=== PATIENT | male | born 1945 | race Caucasian/White ===

== ENCOUNTER 2017-02-16 03:38 | Inpatient (IN) | payer OTHER ==
[~2017-02-16] VITALS: Ht 193 cm; Wt 163.3 kg
[2017-02-16] VITALS (7 sets, daily range): BP systolic 148–192; BP diastolic 63–74
[2017-02-16] MEDS ORDERED: ALLOPURINOL 10100 M1 PO (04:01)
[2017-02-16] MEDS ORDERED: ASPIR 8181 M1 PO (04:01)
[2017-02-16 04:02] LABS: HEMOGLOBIN 12.7 gm/dL (14.0-18.0); MCH 26.5 pg (26.0-34.0); MCHC 32.6 g/dL (28.0-37.0); MCV 81.2 fL (80.0-100.0); MPV 7.8 fl. (7.2-11.1); NUCLEATED RBCS 0 /100WBC; PLATELET COUNT* 249 thou/uL (150-400); RBC 4.81 mil/uL (4.50-6.00); RDW-CV 14.4 % (10.5-14.5); WBC 13.9 thou/uL (4.0-11.0)
[2017-02-16] MEDS ORDERED: CALCIUM CITRAT250 MG PO (04:02)
[2017-02-16] MEDS ORDERED: WELLBUTRIN 75 M75 M1 PO (04:02)
[2017-02-16] MEDS ORDERED: VITAMIN D1000 UNI1 PO (04:03)
[2017-02-16] MEDS ORDERED: IRON325 PO (04:04)
[2017-02-16] MEDS ORDERED: FOLIC ACID1 MG PO (04:04)
[2017-02-16] MEDS ORDERED: NEURONTIN 300300 M1 PO (04:04)
[2017-02-16] MEDS ORDERED: PRAVACHOL20 MG PO (04:05)
[2017-02-16] MEDS ORDERED: TRAZODONE HCL50 MG PO (04:05)
[2017-02-16] MEDS ORDERED: ZANTAC 150MG T150 MG PO (04:05)
[2017-02-16] MEDS ORDERED: FLOMAX0.4 MG PO (04:05)
[2017-02-16] MEDS ORDERED: NORVASC5 MG PO (04:06)
[2017-02-16] MEDS ORDERED: LOPRESSOR100 M1 PO (04:06)
[2017-02-16] MEDS ORDERED: CLARITIN10 MG PO (04:06)
[2017-02-16] MEDS ORDERED: LANTUS SUBQ (04:09)
[2017-02-16] MEDS ORDERED: MELATONIN3 MG PO (04:09)
[2017-02-16] MEDS ORDERED: NOVOLOG100 UNIT/1 SUBQ (04:10)
[2017-02-16] MEDS ORDERED: NORCO 5-325 TA1 EACH PO (04:10)
[2017-02-16] MEDS ORDERED: BIOFREEZE118 ML TOP (04:12)
[2017-02-16] MEDS ORDERED: TYLENOL325 MG PO (04:12)
[2017-02-16 04:14] LABS: CALCIUM 9.2 mg/dL (8.5-10.1); CREATININE 1.2 mg/dL (0.6-1.3); POTASSIUM 3.5 mmol/L (3.5-5.1)
[2017-02-16 04:25] LABS: ALBUMIN 2.7 g/dL (3.4-5.0); TOTAL BILIRUBIN 0.5 mg/dL (<0.1-1.0); TOTAL PROTEIN 7.1 g/dL (6.4-8.2)
[2017-02-16 05:09] LABS: INFLUENZA A ANTIGEN None Detected (None Detect); INFLUENZA B ANTIGEN None Detected (None Detect)
[2017-02-16 05:51] LABS: ABSOLUTE LYMPHOCYTES 1.5 thou/uL (0.8-5.3); ABSOLUTE MONOCYTES 1.3 thou/uL (0.0-1.2); ABSOLUTE NEUTROPHILS 11.1 thou/uL (1.6-8.1); ANISOCYTOSIS 1+; PLATELET ESTIMATE ADEQUATE; POIKILOCYTOSIS 1+
--- NOTE | 2017-02-16 06:30 | NUR ---
PATIENT'S SISTER THOMAS INFORMED THAT PATIENT WILL BE ADMITTED
--- NOTE | 2017-02-16 07:26 | NUR ---
PT PLACED IN INPATIENT BED IN ROOM #6.
[2017-02-16 08:49] LABS: URINE BILIRUBIN NEGATIVE (Negative); URINE BLOOD 2+ (Negative); URINE CLARITY CLEAR; URINE COLOR YELLOW; URINE GLUCOSE-RANDOM NEGATIVE (Negative); URINE KETONES TRACE (Negative); URINE LEUKOCYTES-REFLEX TRACE (Negative); URINE PROTEIN 3+ (Negative); URINE SPECIFIC GRAVITY >= 1.030 (1.005-1.030); URINE UROBILINOGEN 0.2 E.U./dl (0.2-1.0)
[2017-02-16 08:50] LABS: URINE NITRITE-REFLEX POSITIVE (Negative)
[2017-02-16 08:56] LABS: SQUAMOUS 0-3 Few /LPF (0-3); URINE WBC-REFLEX >25 Many /HPF (0-5)
[2017-02-16 08:57] LABS: BACTERIA-REFLEX >30 Many /HPF (None Seen); CASTS None Seen /LPF (None Seen); CRYSTALS None Seen /LPF (None Seen); MUCUS None Seen strn/LPF (None Seen)
--- NOTE | 2017-02-16 19:53 | NUR ---
PATIENT ADMITTED TO ROOM 312 VIA WHEELCHAIR AT 1800. PATIENT MAX ASSIST OF 2-3 STAFF. PATIENT'S ASSESSMENT COMPLETED. SALINE LOCK NOTED TO LEFT HAND. PATIENT ON ROOM AIR. NOTED TO HAVE DRY, NON PRODUCTIVE COUGH. DENIES ANY PAIN. PATIENT NOTED TO HAVE PINK MOIST AREAS TO GROIN, NO OPEN AREAS NOTED. REFUSED TO HAVE PICTURES OBTAINED OF GROIN AND BILATERAL LOWER LEGS. NOTED TO HAVE TUBIGRIPS AND KERLIX TO BILATERAL LOWER LEGS. PICTURES OBTAINED OF RIGHT AND LEFT TOES, STATES OPEN AREAS ARE ABRASIONS. PATIENT ORIENTED TO ROOM AND ENVIRONMENT. REFUSED TO TURN AND ELEVATE HEELS AT 1800. FALL PRECAUTIONS IN PLACE. BED ALARM ON FOR SAFETY. CALL LIGHT WITHIN REACH. WILL CONTINUE WITH PLAN OF CARE.
[2017-02-17 04:24] LABS: HEMATOCRIT 39.9 % (42.0-52.0); HEMOGLOBIN 13.2 gm/dL (14.0-18.0); MCH 26.8 pg (26.0-34.0); MCHC 33.2 g/dL (28.0-37.0); MCV 80.6 fL (80.0-100.0); MPV 8.4 fl. (7.2-11.1); RBC 4.95 mil/uL (4.50-6.00); RDW-CV 14.4 % (10.5-14.5); WBC 8.1 thou/uL (4.0-11.0)
[2017-02-17 04:33] LABS: CALCIUM 9.1 mg/dL (8.5-10.1); CREATININE 1.1 mg/dL (0.6-1.3); MAGNESIUM 1.8 mg/dL (1.8-2.4); POTASSIUM 3.2 mmol/L (3.5-5.1)
--- NOTE | 2017-02-17 06:50 | NUR ---
ASSESSMENT COMPLETE. AT BEGINING OF SHIFT PATIENT HAD ELEVATED BP AND TEMP,TYLENOL AND NIGHTTIME METOPROLOL GIVEN. BLOOD PRESSURE CAME DOWN TO 154/74 AND TEMP CAME DOWN TO 99.8. PT DENIES PAIN AND N/V. PT IS ON ROOM AIR WITH ADEQAUTE SATS. WOUND NURSE CONSULTED FOR BLE CELLULITIS AND ABRASIONS TO TOES. PT IS INCONT OF URINE DURING THE NIGHT. PT UP MAX ASSIST TO BSC FOR BM THIS AM. PT IS FALL RISK, BED ALARM ON. PT IS NONCOMPLIANT. PT HAS IV FLUIDS INFUSING IN RIGHT FOREARM. SEE ASSESSMENT AND VITALS FOR OTHER DETAILS. CALL LIGHT WITHIN REACH, WILL CONTINUE TO MONITOR
[2017-02-17 08:30] VITALS: BP 177/84
--- NOTE | 2017-02-17 12:20 | NUR ---
SW met with pt to complete initial assessment, introduce self, and SW role. Pt alert and oriented. Pt says he lives at home with his brother and plans to return there upon dc. Pt says he has the DME he would need. Pt said he has not had a history of HH services but that maybe he had set up in home services through [place] but that he no longer has those services. SW to continue to follow to assist with safe dc planning.
--- NOTE | 2017-02-17 17:00 | NUR ---
WOUND CARE NOTE: CONSULT RECEIVED FOR BLE CELLULITIS. PATIENT PRESENTS WITH SLIGHT REDNESS TO BILATERAL LOWER EXTREMITIES FROM ANKLE TO JUST BELOW KNEE. AREA IS NOT HOT TO TOUCH. LEGS WITH 2+ EDEMA AND DRIED STABLE SCABS. APPLIED LOTION TO AREA AND CUT NEW TUBIGRIP SIZE F. PATIENT HAD THIS IN PLACE FROM FACILITY, BUT WAS SOILED. PALPABLE PEDAL PULSES BILATERALLY. LEFT 2ND TOE WITH AN ABRASION. PATIENT STATES HE SCRATCHED IT. AREA MEASURES 1.4X1.5X0.2. CLEANSED WITH WOUND CLEANSER, PATTED DRY. WOUND BED IS RED, MOIST. BRENDA-WOUND IS INFLAMMED WITH EDEMA. APPLIED OPTIFOAM AG AND SECURED WITH TAPE. EDUCATED PATIENT ON DRESSING SELECTION, COMMUNICATED UNDERSTANDING. RECOMMEND REMOVE AND REPLACE TUBIGRIPS EVERY SHIFT FOR SKIN CHECK TIGHT BLOOD GLUCOSE CONTROL ELEVATE BLE ENCOURAGE GOOD NUTRITION AND HYDRATION KEEP CLOSE EYE ON TOE WOUND.
--- NOTE | 2017-02-17 18:05 | NUR ---
PATIENT CONTINUOUSLY URINATING ON THE FLOOR, NOT CALLING OUT TO USE THE RESTROOM. BRIEF PUT ON AND HE URINATES AROUND THE BRIEF ONTO THE FLOOR. HEADACHE THIS AM BUT RELIEVED WITH TYLENOL. NO PAIN, SHORTNESS OF AIR OR NAUSEA AT THIS TIME. PATIENT SITTING IN THE CHAIR FOR DINNER. WILL GO BACK TO BED AFTER. BED IN LOWEST POSITION, CALL LIGHT IN REACH.
[2017-02-18 06:00] VITALS: BP 162/70
--- NOTE | 2017-02-18 06:19 | NUR ---
PATIENT ALERT/ORIENTED X2 AT BEGINNING OF SHIFT. PT SPIKED TEMP OF 103 DURING THE NIGHT AND RESPERATIONS AT 50/MIN. ORDER RECEIVED TO HAVE ROCEPHIN DC'D AND VANC AND ZOSYN STARTED. PT PLACED ON O2 @ 2 LITERS PER NASAL CANNULA FOR SAT OF 90%. PT INCONTINENT OF URINE; NUMEROUS BED CHANGES COMPLETED. PT TURNED Q2H PER PROTOCAL. PT REFUSED INSULIN AT 2100. PT WITH NS INFUSING AT 100ML/HR IN RT FOREARM. PT DIAPHRETIC THIS AM DUE TO TEMPERATURE BREAKING AND LINENS CHANGED. PT MORE ALERT THIS AM. DSG PLACED ON TOES BY DRYWALL FINISHER ON DAY SHIFT AND DSGS STILL C/D/I. TUBIGRIP ON LOWER EXTREMITIES IN PLACE. FREQUENTLY USED ITEMS AND CALL LIGHT WITHIN REACH. SIDERAILS UPX4 AND BED ALARM ON. WILL CONTINUE TO MONITOR.
[2017-02-18 08:00] VITALS: BP 150/70
[2017-02-18 16:00] VITALS: BP 162/77
[2017-02-18 19:35] VITALS: BP 118/62
--- NOTE | 2017-02-18 19:59 | NUR ---
DAY 3 OF STAY. ORIENTED X 3, DENIES PAIN. UNDER CONTACT ISOLATION FOR E. COLI OF URINE. DOES, AT TIMES, ROLL TO SIDE OF BED AND URINATE ON FLOOR. WAS ABLE TO TRANSFER WITH SBA OF 1 TO BS FOR LIQUID BM THIS AFTERNOON. DECLINED BREAKFAST AND LUNCH, INSULIN HELD THIS SHIFT. PATIENT STATES, "I CAN'T TELL YOU WHETHER OR NOT I AM GOING TO EAT UNTIL I SEE WHAT THEY SEND ME TO EAT." ATE ONLY BITES FOR SUPPER. SISTER AT BEDSIDE THIS AFTERNOON, STATED THAT THE DISCHARGE PLAN IS FOR PATIENT TO DISCHARGE HOME WITH SISTER. HARI IVF AND IV ABT WITHOUT DIFF.
[2017-02-19 04:41] LABS: HEMATOCRIT 38.4 % (42.0-52.0); HEMOGLOBIN 12.4 gm/dL (14.0-18.0); MCH 26.3 pg (26.0-34.0); MCHC 32.2 g/dL (28.0-37.0); MCV 81.7 fL (80.0-100.0); MPV 8.3 fl. (7.2-11.1); RBC 4.69 mil/uL (4.50-6.00); RDW-CV 14.3 % (10.5-14.5); WBC 7.1 thou/uL (4.0-11.0)
[2017-02-19 05:14] LABS: CALCIUM 8.8 mg/dL (8.5-10.1); CREATININE 1.4 mg/dL (0.6-1.3); POTASSIUM 3.6 mmol/L (3.5-5.1)
--- NOTE | 2017-02-19 06:49 | NUR ---
ASSESSMENT COMPLETE. PT SLEPT MOST OF THE NIGHT WITHOUT ANY CONCERNS. TYLENOL GIVEN FOR HEADACHE WITH RELIEF REPORTED. PT IS ON ROOM AIR WITH ADEQAUTE SATS. PT AFEBRILE DURING THE NIGHT. PT IS ON IV ZOSYN Q6HR. PT HAS IV FLUIDS INFUSING IN RIGHT FOREARM. PT TURNS SELF IN BED. PT IS UP WITH MAX ASSIST TO BSC. PT HAD DIARRHEA ONCE DURING THE NIGHT. PT HAS BANDAGES TO ABRASIONS ON TOES, TUBIGRIPS TO BLE. PT IS SLEEPING AT THIS TIME. SEE ASSESSMENT AND VITALS FOR OTHER DETAILS. BED ALARM ON, CALL LIGHT WITHIN REACH. WILL CONTINUE TO MONITOR
[2017-02-19 07:30] VITALS: BP 125/67
--- NOTE | 2017-02-19 07:45 | CON ---
[address] [address] CONSULTATION Name: MUKESH SHER Room: [address] IN [facility]#: [id number] Admission: 02/16/17 Attend Phys: Melody Humphrey Discharge: Date of : 47 Report #: [id number] THIS REPORT FOR: //name// CC: Flo Gonzalez DATE OF SERVICE: 02/18/2017 ATTENDING PHYSICIAN: Dr. Reilly. 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 HISTORY OF PRESENT ILLNESS: Chart reviewed, patient examined. This is a 71-year-old with diabetes mellitus, hypertension, who had a roughly 36-hour history of some fevers, cough which was the initial complaint, this was nonproductive. He denies any significant dyspnea. He did have some anorexia with poor p.o. intake. Evaluation was undertaken. Chest x-ray was unrevealing. Urinalysis did show marked pyuria and urine culture with greater than 10 to the fifth Escherichia coli. He generally does not feel significantly better, had been placed empirically on ceftriaxone, this was switched to Zosyn. ALLERGIES: No known medical allergies. MEDICATIONS: Include Zosyn, enoxaparin, insulin, atorvastatin, trazodone, tamsulosin, metoprolol, famotidine, gabapentin, amlodipine, cholecalciferol, aspirin, allopurinol. PAST MEDICAL HISTORY: As noted above, has a history of reflux, posttraumatic stress disorder, chronic anemia. SOCIAL HISTORY: Nonsmoker, no ethanol. FAMILY HISTORY: Noncontributory. REVIEW OF SYSTEMS: As above. PHYSICAL EXAMINATION: GENERAL: He appears ill, not overtly toxic, somewhat undernourished. VITAL SIGNS: Temperature 101.6, earlier with a T-max of 102.1, pulse 90, respirations 18, blood pressure 150/70. SKIN: Warm, dry, no rashes. HEENT: Otherwise, unremarkable. NECK: Supple. LUNGS: Diminished breath sounds. HEART: [place] [id number] CONSULTATION Name: MUKESH SHER Room: [address]#: [id number] Admission: 02/16/17 Attend Phys: Melody Humphrey Discharge: Date of : 47 Report #: [id number] ABDOMEN: Soft, no peritoneal signs. GENITOURINARY AND RECTAL: Deferred. LABORATORY DATA: Urine culture described above ____ susceptible to Zosyn, trimethoprim and sulfamethoxazole, imipenem, amikacin and Augmentin. Blood culture sterile thus far. Lactic acid 0.9. C. diff was negative. Electrolytes: Sodium 138, potassium 3.2, chloride 104, bicarbonate is 22, anion gap of 12, BUN and creatinine 18 and 1.1. Prealbumin of 13.1. CBC: White count of 8.1, H and H 13.2 and 39, platelets of 277. ASSESSMENT AND PLAN: Complicated urinary tract infection. Continue piperacillin, tazobactam. May need further evaluation. There was noted nonobstructing lower pole right renal stone with some focal circumferential wall thickening upper sigmoid and evaluation for possible occult process as well. ____. <ELECTRONICALLY SIGNED> By: Alon Cornejo MD 02/19/17 0745 [id number] Cornejo MD /nt
--- NOTE | 2017-02-19 09:00 | NUR ---
VSS, ASSUMED CARE IN THE AM, ASSESSMENT PERFORMED AND CHARTED, FALL PRECAUTIONS IN PLACE AND CALL LIGHT IN REACH, PT IS A&O4 AND UP WITH ONE TO BSC, ON RA AND DENIES ANY PAIN, OT GOAL IS TO SIT UP IN CHAIR AND WORK WITH PT/OT, WILL FOLLOW WITH PLAN OF CARE, AND HOURLY ROUNDS.
[2017-02-19 16:04] VITALS: BP 142/63
[2017-02-19 20:35] VITALS: BP 167/70
[2017-02-19 23:27] VITALS: BP 134/64
--- NOTE | 2017-02-20 05:13 | NUR ---
PT SLEPT AT INTERVALS DURING THE NIGHT, PLEASANT, UP SBA TO THE BSC, ONE BOWEL MOVEMENT TONIGHT, IV FLUIDS AND ANTIBIOTICS GIVEN, PRN PAIN MED GIVEN, IMMODIUM ORDERED AND GIVEN PER REQUEST, CALL LIGHT IN REACH, BED ALARM ON FOR SAFETY, WILL CONTINUE TO MONITOR
[2017-02-20 07:40] VITALS: BP 158/77
--- NOTE | 2017-02-20 11:26 | NUR ---
PT EVAL AND TREAT ORDERS FROM 02/16/17. SKILLED OT HAS ATTEMPTED EVAL X3 SINCE ADMIT WITH PT REFUSING. PT STATES HE IS DOING EVERYTHING THE SAME WAY HE WOULD AT HOME, HE IS TRANSFERRING WITHOUT ASSIST, (PER NURSING HE IS NOT FOLLOWING RECOMMENDATIONS FOR CALLING FOR ASSIST AT ALL TIMES) DUE TO PT'S DESIRE TO NO HAVE OCCUPATIONAL THERAPY CONSISTANT REFUSAL OF SERVICES, PT DISCHARGED WITH NO EVAL COMPLETED.
--- NOTE | 2017-02-20 11:50 | NUR ---
Nutrition: Pt assessed for high BMI. Wt stable at 360# since admit. Pt is not eating well. Per RN notes, pt stated that he doesn't know if he'll eat or not until he sees what they bring him. All patients should be given a menu upon admission. Inadequate oral intake related to pt choices of menu as evidenced by pt self report and <50% of meals consumed. PLEASE PROVIDE PATIENT WITH A CHO CONTROLLED MENU. Labs: BG 73-147, alb 2.7, prealb 13.1. Pt had liquid BM today. Consider Mild risk.
[2017-02-20 13:05] LABS: URINE BILIRUBIN NEGATIVE (Negative); URINE BLOOD 1+ (Negative); URINE CLARITY CLEAR; URINE COLOR YELLOW; URINE GLUCOSE-RANDOM NEGATIVE (Negative); URINE KETONES NEGATIVE (Negative); URINE LEUKOCYTES-REFLEX NEGATIVE (Negative); URINE NITRITE-REFLEX NEGATIVE (Negative); URINE PROTEIN 2+ (Negative); URINE SPECIFIC GRAVITY >= 1.030 (1.005-1.030); URINE UROBILINOGEN 0.2 E.U./dl (0.2-1.0)
[2017-02-20 13:17] LABS: BACTERIA-REFLEX 1-9 Few /HPF (None Seen); CASTS None Seen /LPF (None Seen); CRYSTALS None Seen /LPF (None Seen); MUCUS None Seen strn/LPF (None Seen); SQUAMOUS 4-10 Moderate /LPF (0-3); URINE WBC-REFLEX 0-5 Rare /HPF (0-5)
[2017-02-20 15:53] VITALS: BP 159/78
--- NOTE | 2017-02-20 18:03 | NUR ---
PATIENT A&OX4, ROOM AIR, IV RIGHT FOREARM, FLUIDS INFUSSING. UP WITH ASSISTX1, REQUESTING TO DO TRANSFERS ON OWN WITH NO HELP. HAVE HAD NO ISSUES WITH BEING STAND BY. C/O PAIN, PARTIAL RELEIF WITH PAIN MEDICATION. NO OTHER CONCERNS AT THIS TIME. APPROPRIATE AND COOPORATIVE WITH CARE.
[2017-02-20 20:00] VITALS: BP 171/78
[2017-02-21] VITALS: BP 158/75
[2017-02-21 04:32] LABS: HEMATOCRIT 35.4 % (42.0-52.0); HEMOGLOBIN 11.5 gm/dL (14.0-18.0); MCH 26.2 pg (26.0-34.0); MCHC 32.4 g/dL (28.0-37.0); MCV 80.9 fL (80.0-100.0); MPV 7.9 fl. (7.2-11.1); RBC 4.37 mil/uL (4.50-6.00); RDW-CV 14.6 % (10.5-14.5); WBC 6.3 thou/uL (4.0-11.0)
--- NOTE | 2017-02-21 04:40 | NUR ---
PT AWAKE MOST OF SHIFT. ASSESSMENT DOCUMENTED. MEDS GIVEN PER E-MAR. IV PATENT, FLUIDS INFUSING. PT REPORTED GENERALIZED PAIN, PAIN MEDS GIVEN PER E-MAR. PT RECIEVED PARTIAL BED BATH. PT UP TO BSC SEVERAL TIMES THORUGH NIGHT. NO CONCERNS AT THIS TIME, WILL CONTINUE TO MONITOR.
[2017-02-21 05:09] LABS: CALCIUM 8.4 mg/dL (8.5-10.1); CREATININE 1.1 mg/dL (0.6-1.3); MAGNESIUM 1.7 mg/dL (1.8-2.4); POTASSIUM 3.6 mmol/L (3.5-5.1)
[2017-02-21 07:31] VITALS: BP 158/75
[2017-02-21 08:45] VITALS: BP 155/73
[2017-02-21 15:45] VITALS: BP 179/79
--- NOTE | 2017-02-21 19:28 | NUR ---
MELY RESTING IN BED. APTIENT HAS BEEN UP TO CHAIR MOST OF DAY. PATIETN HAS COMPLAINTS OF PAIN TO LEGS/BACK TREATED ADEQUATELY WITH PO PAIN MEDICATION. PATIENT HAS EXCELLENT APPETITE. PATIENT HAS TUBIGRIPS TO BLE. PATIENT HAS BEEN AFEBRILE. PATIENT DENIES ANY NEEDS AT THIS TIME. CALL LIGHT NAIMA PARNELL. WILL CONTINUE TO MONITOR.
[2017-02-21 20:15] VITALS: BP 142/70
--- NOTE | 2017-02-22 06:17 | NUR ---
PT SLEPT ON AND OFF THIS SHIFT. ASSESSMENT DOCUMENTED. MEDS GIVEN PER E-APR. PT REFUSED HIS GABAPENTIN THIS SHIFT STATING "THAT DOESN'T DO ME ANY GOOD." IV PATENT, FLUIDS INFUSING. NO CONCERNS AT THIS TIME, WILL CONTINUE TO MONITOR.
[2017-02-22 08:10] VITALS: BP 166/77
[2017-02-22] MEDS ORDERED: BACTRIM DS TAB1 EACH PO (16:32)
--- NOTE | 2017-02-22 19:14 | NUR ---
PATIENT RESTING IN BED, PATIENT DENIES ANY PAIN. PATIENT HAS DISCHARGE ORDERS BUT UNABLE TO GO TO BROTHER'S HOUSE [facility]. DR ORDONEZ OKAY TO HOLD DISCHARGE UNTIL AM. DISCHARGE ORDERS COMPLETED, DISCHARGE PHOTOS IN CHART. PATIENT DENIES ANY NEEDS AT THIS TIME. WILL CONTINUE TO MONITOR.
[2017-02-22 21:00] VITALS: BP 158/76
--- NOTE | 2017-02-23 05:21 | NUR ---
ALERT AND ORIENTED X4. UP WITH 1 ASSIST TO BEDSIDE COMMODE. TYLENOL GIVEN AT BEDTIME AND HELPFUL AND PATIENT WAS ABLE TO SLEEP. PATIENT WEARING TUBE AGRICULTURE INTERN ON BILATERAL LOWER EXTREMITIES. LUNG SOUNDS DIMINISH BUT O2 SAT REMAIN IN 90'S. CALL LIGHT WITHIN REACH.
[2017-02-23 08:35] VITALS: BP 174/87
[2017-02-23 09:21] VITALS: BP 174/87
--- NOTE | 2017-02-23 11:43 | NUR ---
ELIZABETH received call from [facility] stating that they received the referral and orders for pt HH upon dc, however, pt [place] insurance would require ELIZABETH to request approval through [facility] to arrange HH. ELIZABETH called [place] and left a message with the transitional care department to contact ELIZABETH regarding pt HH services to be arranged/approved. Pt to dc home with brother today...SW to send info to VA upon hearing back from VA...pt can also follow up with the [facility] on his own after dc home.
--- NOTE | 2017-02-23 15:39 | NUR ---
PATIENT GIVEN DISCHARGE INSTRUCTIONS AT THIS TIME AND PRESCRIPTIONS. PATIENT DISCONTINUED OWN IV. PATIENT VERBALIZED UNDERSTANDING IN REGARDS TO FOLLOW UP APPOINTMENTS AND NEW MEDICATIONS. PATIENT DISCHARGED VIA WHEELCHAIR WITH ALL BELONGINGS. ESCORTED OFF NURSING UNIT WITH NURSING STAFF.
== END 2017-02-23 15:42 | disposition home health service (06) | DRG 872 ==
LOC: M.ERS 03:38 → M.TBA-ER 06:37 → M.3W 18:01
PROVIDERS: Emergency Medicine; Family Medicine; Internal Medicine; Specialist; ADMIT Internal Medicine
DX: A41.9 Sepsis, unspecified organism (principal); Z68.41 Body mass index [BMI] 40.0-44.9, adult; E44.1 Mild protein-calorie malnutrition; N39.0 Urinary tract infection, site not specified; F43.10 Post-traumatic stress disorder, unspecified; N20.0 Calculus of kidney; K21.9 Gastro-esophageal reflux disease without esophagitis; E66.01 Morbid (severe) obesity due to excess calories; E78.5 Hyperlipidemia, unspecified; N18.2 Chronic kidney disease, stage 2 (mild); I12.9 Hypertensive chronic kidney disease with stage 1 through stage 4 chronic kidney disease, or unspecified chronic kidney disease; E11.22 Type 2 diabetes mellitus with diabetic chronic kidney disease; M10.9 Gout, unspecified; F32.9 Major depressive disorder, single episode, unspecified; E11.42 Type 2 diabetes mellitus with diabetic polyneuropathy; I87.8 Other specified disorders of veins; B96.20 Unspecified Escherichia coli [E. coli] as the cause of diseases classified elsewhere; J40 Bronchitis, not specified as acute or chronic; R91.1 Solitary pulmonary nodule; Z79.82 Long term (current) use of aspirin; Z79.899 Other long term (current) drug therapy; Z91.09 Other allergy status, other than to drugs and biological substances